=== PATIENT | male | born 2000 | race Caucasian/White ===

== ENCOUNTER 2021-10-05 16:05 | Emergency (ER) | payer BC ==
[~2021-10-05] VITALS: Ht 182 cm; Wt 79.0 kg
--- NOTE | 2021-10-05 16:53 | Diagnostic Imaging Report ---
EXAM: Ankle, right, 3 views INDICATION: Right ankle pain. Fall. COMPARISON: None. FINDINGS: No fracture or malalignment. Soft tissue shadows are unremarkable. IMPRESSION: Negative right ankle radiographs. Dictated by: Dictated on workstation # [id number]
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
[2021-10-05 17:24] LABS: BILIRUBIN,URINE NEGATIVE (NEGATIVE); CLARITY,URINE SL CLOUDY; COLOR,URINE YELLOW; GLUCOSE, URINE (UA) NEGATIVE (NEGATIVE); KETONES,URINE 1+ (NEGATIVE); LEUKOCYTE ESTERASE ,URINE NEGATIVE (NEGATIVE); NITRITE,URINE NEGATIVE (NEGATIVE); PH,URINE 8.5 (5-9); PROTEIN,URINE 2+ (NEGATIVE)
[2021-10-05 17:34] LABS: BACTERIA,URINE TRACE /HPF; WBC,URINE RARE /HPF
[2021-10-05 17:48] LABS: AMPHETAMINE SCREEN, URINE NEGATIVE (NEGATIVE); BARBITURATE SCREEN URINE POSITIVE (NEGATIVE); BENZODIAZEPINES SCREEN URINE NEGATIVE (NEGATIVE); CANNABINOID SCREEN, URINE POSITIVE (NEGATIVE); COCAINE SCREEN URINE NEGATIVE (NEGATIVE); METHADONE STAT NEGATIVE (NEGATIVE); METHAMPHETAMINE SCREEN URINE S NEGATIVE (NEGATIVE); OPIATE SCREEN URINE NEGATIVE (NEGATIVE); OXYCODONE STAT NEGATIVE (NEGATIVE); PROPOXYPHENE STAT NEGATIVE (NEGATIVE); TRICYCLIC ANTIDEPRESSANTS SCRE NEGATIVE (NEGATIVE)
[2021-10-05] MEDS ORDERED: TETANUS,DIPTH,PERTUSS P/F (BOOSTRIX) 0.5 ML VIAL IM ONE (18:15)
[2021-10-05 18:41] VITALS: BP 145/89
== END 2021-10-05 18:41 | disposition home or self-care (01) ==
LOC: ER 16:09
DX: S93.401A Sprain of unspecified ligament of right ankle, initial encounter (principal); S80.812A Abrasion, left lower leg, initial encounter; F10.129 Alcohol abuse with intoxication, unspecified; F19.10 Other psychoactive substance abuse, uncomplicated; Z23 Encounter for immunization; W18.30XA Fall on same level, unspecified, initial encounter
CPT/HCPCS: 73610; 80306; 81000; 90715

== ENCOUNTER 2023-04-19 16:47 | Emergency (ER) | payer BC ==
[~2023-04-19] VITALS: Ht 182.9 cm; Wt 90.7 kg
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
[2023-04-19 17:09] LABS: BASOPHILS # (AUTO) 0.1 10^3/uL (0.0-0.1); BASOPHILS % (AUTO) 1 % (0-10); EOSINOPHILS # (AUTO) 0.1 10^3/uL (0.0-0.3); EOSINOPHILS % (AUTO) 2 % (0-10); HEMATOCRIT 48 % (40-54); HEMOGLOBIN 15.4 g/dL (13.3-17.7); LYMPHOCYTES # (AUTO) 1.5 10^3/uL (1.0-4.0); LYMPHOCYTES % (AUTO) 16 % (12-44); MEAN CORPUSCULAR HEMOGLOBIN 28 pg (25-34); MEAN CORPUSCULAR HGB CONC 32 g/dL (32-36); MEAN CORPUSCULAR VOLUME 86 fL (80-99); MONOCYTES # (AUTO) 0.5 10^3/uL (0.0-1.0); MONOCYTES % (AUTO) 5 % (0-12); NEUTROPHILS # (AUTO) 7.1 10^3/uL (1.8-7.8); NEUTROPHILS % (AUTO) 77 % (42-75); PLATELET COUNT 282 10^3/uL (130-400); WHITE BLOOD COUNT 9.2 10^3/uL (4.3-11.0)
[2023-04-19 17:18] LABS: PROTHROMBIN TIME PATIENT 13.1 SEC (12.2-14.7)
[2023-04-19 17:19] LABS: ALBUMIN 4.9 GM/DL (3.2-4.5); CHLORIDE 105 MMOL/L (98-107); SODIUM 140 MMOL/L (135-145)
[2023-04-19 17:20] LABS: CALCIUM 9.8 MG/DL (8.5-10.1)
[2023-04-19 17:21] LABS: GLUCOSE 91 MG/DL (70-105)
[2023-04-19 17:22] LABS: TOTAL PROTEIN 8.5 GM/DL (6.4-8.2)
[2023-04-19 17:23] LABS: BILIRUBIN,TOTAL 0.8 MG/DL (0.1-1.0); CARBON DIOXIDE 22 MMOL/L (21-32)
[2023-04-19 17:25] LABS: ALKALINE PHOSPHATASE 119 U/L (40-136); CREATININE SERUM 0.98 MG/DL (0.60-1.30); GFR ESTIMATED 111
[2023-04-19 17:26] LABS: BUN/CREATININE RATIO 23
[2023-04-19 17:28] LABS: ALANINE AMINOTRANSFERASE 42 U/L (0-55); MAGNESIUM 2.2 MG/DL (1.6-2.4)
--- NOTE | 2023-04-19 17:34 | Diagnostic Imaging Report ---
INDICATION: Chest pain. COMPARISON: None available. TECHNIQUE: Single radiograph of the chest dated 04/19/2023. FINDINGS: The cardiac silhouette is within normal limits in size. No significant pulmonary vascular congestion. Left basilar opacities with potential medial lucency are present with associated tenting of the left hemidiaphragm. The right lung appears clear. No significant pleural effusion. No pneumothorax. No acute osseous abnormality. IMPRESSION: Left basilar atelectasis versus pneumonitis with tenting of the diaphragm. Alternatively, a small hiatal hernia with adjacent atelectasis would be an additional consideration. Dictated by: Dictated on workstation # [id number]
[2023-04-19] MEDS ORDERED: ASPIRIN 81 MG CHEWABLE TABLET PO ONE (17:45)
[2023-04-19] MEDS ORDERED: NS IV 1000 ML 1,000 ML IV STA (17:52)
[2023-04-19] MEDS ORDERED: NS 100 ML (IVPB) BAG IV ONE (18:00)
[2023-04-19] MEDS ORDERED: IOHEXOL 350 MG/ML 100 ML (OMNIPAQUE 350) VIAL IV ONE (18:00)
--- NOTE | 2023-04-19 18:29 | Diagnostic Imaging Report ---
EXAMINATION: CT angiography of the chest. TECHNIQUE: Contrast enhanced thin section helical images were obtained through the chest with intravenous contrast timed for the optimal opacification of the arterial structures per CTA protocol. Post-processing, reconstructions and interpretation of angiographic images of the vessels was performed. 3D MIP reconstructions were performed and reviewed. All CT scans use one or more of the following dose optimizing techniques: Automated exposure control, MA and/or KvP adjustment based on a patient size and exam type, or iterative reconstruction. HISTORY: Chest pain and hypertension. COMPARISON: None available. FINDINGS: Vascular: There are no filling defects within the pulmonary arteries. The thoracic aorta is normal in caliber. Thyroid: The thyroid is normal. Mediastinum: Heart size is normal without significant pericardial effusion. No suspicious lymphadenopathy. Lungs and airways: The lungs are clear without consolidation, pleural effusion, or pneumothorax. There is mild atelectasis in the lung bases. The airways are normal. Upper abdomen: Moderate hiatal hernia is present. Musculoskeletal: No suspicious osseous lesion or compression fracture. IMPRESSION: 1. No findings of pulmonary embolus or other acute abnormality in the chest. Dictated by: Dictated on workstation # [id number]
[2023-04-19 18:49] LABS: CLARITY,URINE CLEAR; COLOR,URINE YELLOW
[2023-04-19 18:50] LABS: AMORPHOUS SEDIMENT,UR LARGE AMOR PHOSPHATE /LPF; BACTERIA,URINE NEGATIVE /HPF; BILIRUBIN,URINE NEGATIVE (NEGATIVE); GLUCOSE, URINE (UA) NEGATIVE (NEGATIVE); KETONES,URINE NEGATIVE (NEGATIVE); LEUKOCYTE ESTERASE ,URINE NEGATIVE (NEGATIVE); NITRITE,URINE NEGATIVE (NEGATIVE); PROTEIN,URINE NEGATIVE (NEGATIVE); SQUAMOUS EPITHELIAL CELL,UR RARE /HPF
[2023-04-19 18:52] LABS: AMPHETAMINE SCREEN, URINE NEGATIVE (NEGATIVE); BARBITURATE SCREEN URINE NEGATIVE (NEGATIVE); CANNABINOID SCREEN, URINE NEGATIVE (NEGATIVE); COCAINE SCREEN URINE NEGATIVE (NEGATIVE); METHADONE STAT NEGATIVE (NEGATIVE); OPIATE SCREEN URINE NEGATIVE (NEGATIVE); OXYCODONE STAT NEGATIVE (NEGATIVE); TRICYCLIC ANTIDEPRESSANTS SCRE NEGATIVE (NEGATIVE)
[2023-04-19] MEDS ORDERED: LOSA100T58 PO (20:10)
[2023-04-19 20:25] VITALS: BP 138/85
== END 2023-04-19 20:35 | disposition home or self-care (01) ==
LOC: EDUNIT# 16:47 → ER 16:50
DX: I10 Essential (primary) hypertension (principal); R94.31 Abnormal electrocardiogram [ECG] [EKG]; Z79.890 Hormone replacement therapy
CPT/HCPCS: 36415; 71045; 71275; 80053; 80306; 81000; 83735; 83880; 84443; 84484; 85025; 85610; 85730; 93005; 93041; 96360